=== PATIENT | male | born 1965 | race Caucasian/White ===

== ENCOUNTER 2023-11-01 05:44 | Emergency (ER) | payer BC ==
[~2023-11-01] VITALS: Ht 177.8 cm; Wt 90.7 kg
[2023-11-01 05:53] VITALS: BP_SYST 185; PULSE 63; RESP 18; TEMP 96.3; O2SAT 100
[2023-11-01 06:38] LABS: BASOPHILS # (AUTO) 0.1 K/uL (0.0-0.2); BASOPHILS % (AUTO) 0.4 % (0.0-2.0); EOSINOPHILS % (AUTO) 0.2 % (0.0-4.0); HEMATOCRIT 47.9 % (36-54); HEMOGLOBIN 16.6 g/dL (14.0-18.0); LYMPHOCYTES # (AUTO) 0.8 K/uL (1.0-5.5); LYMPHOCYTES % (AUTO) 6.6 % (20.5-51.5); MEAN CORPUSCULAR HEMOGLOBIN 30 pg (27-31); MEAN CORPUSCULAR HGB CONC 35 % (32-36); MEAN CORPUSCULAR VOLUME 85 fL (79.0-98.0); MONOCYTES # (AUTO) 0.4 K/uL (0.0-1.0); MONOCYTES % (AUTO) 3.6 % (1.7-9.3); NEUTROPHILS # (AUTO) 10.8 K/uL (1.8-7.7); NEUTROPHILS % (AUTO) 89.2 % (40.0-70.0); PLATELET COUNT (AUTO) 291 K/uL (130-430); RED BLOOD CELL COUNT(AUTO) 5.63 MIL/uL (4.2-6.2); RED CELL DISTRIBUTION WIDTH 13.4 % (9.0-15.0); WHITE BLOOD COUNT (AUTO) 12.1 K/uL (4.8-10.8)
[2023-11-01] MEDS: KETOROLAC TROMETHAMINE 30 MG VIAL IVP ONE (06:50)
[2023-11-01 06:58] LABS: CALCIUM 9.7 mg/dL (8.4-11.0); CREATININE 1.4 mg/dL (0.55-1.30); POTASSIUM 3.4 mmol/L (3.5-5.1)
[2023-11-01 07:02] LABS: ALBUMIN 4.2 g/dL (3.4-4.8); BILIRUBIN,DIRECT 0.2 mg/dL (0.0-0.3); TOTAL BILIRUBIN 0.9 mg/dL (0.0-1.0); TOTAL PROTEIN, SERUM 8.1 g/dL (6.4-8.3)
[2023-11-01] MEDS: NACL 0.9% 1,000 ML IV ONE (07:09)
[2023-11-01] MEDS: cloNIDine HCL 0.1 MG TABLET PO ONE (08:25)
[2023-11-01 08:32] LABS: BILIRUBIN,URINE NEGATIVE (NEGATIVE); BLOOD, URINE 2+ (NEGATIVE); CLARITY/URINE CLEAR (CLEAR); COLOR,URINE YELLOW (YELLOW); GLUCOSE,URINE NEGATIVE (NEGATIVE); KETONES,URINE 1+ (NEGATIVE); LEUKOCYTE ESTERASE ,URINE NEGATIVE (NEGATIVE); NITRITE, URINE NEGATIVE (NEGATIVE); PROTEIN URINE NEGATIVE (NEGATIVE); UROBILINOGEN,URINE 0.2 (0.2-1.0)
[2023-11-01 08:52] LABS: BACTERIA,URINE RARE /HPF (None Seen); WBC,URINE 0-3 /HPF (0-3)
[2023-11-01] MEDS ORDERED: NAPR-688 PO (09:03)
[2023-11-01] MEDS ORDERED: TRAM50TA2 PO (09:03)
[2023-11-01] MEDS ORDERED: LOSA-413 PO (09:03)
[2023-11-01 09:08] LABS: MUCUS,URINE 1+ /LPF (None Seen)
[2023-11-01 09:43] VITALS: BP_SYST 166; PULSE 59; RESP 20; TEMP 97.6; O2SAT 96
== END 2023-11-01 09:45 | disposition home or self-care (01) ==
LOC: SED 05:44
DX: N20.0 Calculus of kidney (principal); N23 Unspecified renal colic; I16.0 Hypertensive urgency; R11.0 Nausea; Z79.899 Other long term (current) drug therapy
CPT/HCPCS: 99285; 74176; 96374; 96361; 80076; 80048; 81001; 83690; 85025; 36415; 81000; 81015; J1885; J7030

== ENCOUNTER 2024-04-10 16:03 | Emergency (ER) | payer BC ==
[~2024-04-10] VITALS: Ht 177.8 cm; Wt 79.4 kg
[~2024-04-10 16:03] MED LIST: LOSA-413 PO; NAPR-688 PO; TRAM50TA2 PO
[2024-04-10 16:53] VITALS: BP_SYST 181; PULSE 88; RESP 16; TEMP 97.9; O2SAT 98
[2024-04-10 18:23] LABS: BILIRUBIN,URINE NEGATIVE (NEGATIVE); CLARITY/URINE CLEAR (CLEAR); COLOR,URINE YELLOW (YELLOW); GLUCOSE,URINE NEGATIVE (NEGATIVE); KETONES,URINE NEGATIVE (NEGATIVE); LEUKOCYTE ESTERASE ,URINE NEGATIVE (NEGATIVE); NITRITE, URINE NEGATIVE (NEGATIVE); PH,URINE 6.5 (5.0-8.0); PROTEIN URINE NEGATIVE (NEGATIVE); UROBILINOGEN,URINE 0.2 (0.2-1.0)
[2024-04-10 19:00] LABS: BLOOD, URINE TRACE (NEGATIVE)
[2024-04-10 19:09] LABS: BACTERIA,URINE FEW /HPF (None Seen); WBC,URINE 0-3 /HPF (0-3)
[2024-04-10 19:10] LABS: MUCUS,URINE None Seen /LPF (None Seen)
[2024-04-10 20:20] VITALS: BP_SYST 178; PULSE 72; RESP 14; TEMP 97.9; O2SAT 98
== END 2024-04-10 20:20 | disposition home or self-care (01) ==
LOC: SED 16:03
DX: R33.9 Retention of urine, unspecified (principal); R03.0 Elevated blood-pressure reading, without diagnosis of hypertension; Z79.899 Other long term (current) drug therapy
CPT/HCPCS: 81000; 81001; 81015; 99284

== ENCOUNTER 2024-04-11 06:35 | Emergency (ER) | payer BC ==
[~2024-04-11] VITALS: Ht 177.8 cm; Wt 79.4 kg
[2024-04-11 06:48] VITALS: BP_SYST 217; PULSE 65; RESP 20; TEMP 97.2; O2SAT 99
[2024-04-11 07:33] VITALS: BP_SYST 217; PULSE 65; RESP 20; TEMP 97.2; O2SAT 99
== END 2024-04-11 07:30 | disposition home or self-care (01) ==
LOC: SED 06:35
DX: R33.9 Retention of urine, unspecified (principal); Z79.899 Other long term (current) drug therapy
CPT/HCPCS: 99284